=== PATIENT | male | born 1955 | race Caucasian/White ===

== ENCOUNTER 2018-04-23 21:18 | Emergency (ER) | payer BC ==
[~2018-04-23] VITALS: Ht 188 cm; Wt 86.8 kg
[~2018-04-23 21:18] MED LIST: ALBU18HF2 IH; BAC10T PO; FROV2.5T6 PO; NORCO10T PO; PROC-8 PO; ZOLP12.531 PO
[2018-04-23 21:56] LABS: BASOPHILS % (AUTO) 0.2 % (0-1); EOSINOPHILS # (AUTO) 0.1 X10'3 (0-0.9); EOSINOPHILS % (AUTO) 1.2 % (0-6); HEMATOCRIT 42.7 % (42.0-52.0); HEMOGLOBIN 14.6 g/dl (14.0-17.9); LYMPHOCYTES # (AUTO) 1.8 X10'3 (1.1-4.8); LYMPHOCYTES % (AUTO) 26.5 % (21-51); MEAN CORPUSCULAR HEMOGLOBIN 30.5 PG (27.0-31.0); MEAN CORPUSCULAR HGB CONC 34.1 % (33.0-36.5); MEAN CORPUSCULAR VOLUME 89.5 FL (78-98); MEAN PLATELET VOLUME 7.4 FL (7.4-10.4); MONOCYTES # (AUTO) 0.7 X10'3 (0-0.9); MONOCYTES % (AUTO) 9.7 % (2-12); NEUTROPHILS # (AUTO) 4.3 X10'3 (1.8-7.7); NEUTROPHILS % (AUTO) 62.4 % (42-75); PLATELET COUNT 230 X10'3 (140-440); RED BLOOD COUNT 4.77 X10'6 (4.70-6.10)
[2018-04-23 22:12] LABS: INR 1.1 INR; PARTIAL THROMBOPLASTIN TIME 27 SECONDS (22-32); PROTHROMBIN TIME 10.9 SECONDS (9.0-12.0)
[2018-04-23 22:16] LABS: ALANINE AMINOTRANSFERASE 30 U/L (12-78); ALBUMIN 3.8 G/DL (3.4-5.0); ALBUMIN/GLOBULIN RATIO 1.2 (1.1-1.5); ALKALINE PHOSPHATASE 67 IU/L (46-116); ANION GAP 8 (8-16); ASPARTATE AMINO TRANSFERASE 20 U/L (10-37); BILIRUBIN,TOTAL 1.1 MG/DL (0.1-1.0); BLOOD UREA NITROGEN 20 MG/DL (7-18); CALCIUM 9.1 MG/DL (8.5-10.1); CHLORIDE 105 MMOL/L (99-107); CREATININE 1.05 MG/DL (0.60-1.10); GLUCOSE 116 MG/DL (70-104); POTASSIUM 3.2 MMOL/L (3.5-5.1); SODIUM 140 MMOL/L (135-145); TOTAL PROTEIN 6.9 G/DL (6.4-8.2); eGFR 72 ML/MIN
[2018-04-23] MEDS ORDERED: LORazepam 1 MG tablet PO ONE (22:55)
[2018-04-23 23:55] VITALS: BP 129/59
== END 2018-04-23 23:56 | disposition home or self-care (01) ==
LOC: ER 21:19
DX: F41.9 Anxiety disorder, unspecified (principal); R07.9 Chest pain, unspecified; R42 Dizziness and giddiness; G43.909 Migraine, unspecified, not intractable, without status migrainosus; J44.9 Chronic obstructive pulmonary disease, unspecified; Z88.8 Allergy status to other drugs, medicaments and biological substances; Z79.899 Other long term (current) drug therapy
CPT/HCPCS: 36415; 71045; 80053; 84484; 85025; 85610; 85730; 93005; 99285

== ENCOUNTER 2023-05-31 04:11 | Emergency (ER) | payer MEDICARE, BC ==
[~2023-05-31] VITALS: Ht 182.9 cm; Wt 92.7 kg
[2023-05-31 04:21] VITALS: BP 147/92; PULSE 74; TEMP 98; O2SAT 96
[2023-05-31] MEDS ORDERED: ondansetron/PF 4mg/2ml inj IV ONE (04:35)
[2023-05-31] MEDS ORDERED: HYDROmorphone 1 mg/ml syringe IV ONE ×2 (04:35→05:45)
[2023-05-31 05:13] LABS: BASOPHILS % (AUTO) 0.2 % (0-1); EOSINOPHILS # (AUTO) 0.1 X10'3 (0-0.9); EOSINOPHILS % (AUTO) 1.3 % (0-6); HEMATOCRIT 41.3 % (42.0-52.0); HEMOGLOBIN 14.1 g/dl (14.0-17.9); LYMPHOCYTES # (AUTO) 1.4 X10'3 (1.1-4.8); LYMPHOCYTES % (AUTO) 16.1 % (21-51); MEAN CORPUSCULAR HEMOGLOBIN 30.4 PG (27.0-31.0); MEAN CORPUSCULAR HGB CONC 34.1 g/dL (33.0-36.5); MEAN CORPUSCULAR VOLUME 89.1 FL (78-98); MONOCYTES % (AUTO) 11.2 % (2-12); NEUTROPHILS # (AUTO) 6.4 X10'3 (1.8-7.7); NEUTROPHILS % (AUTO) 71.2 % (42-75); PLATELET COUNT 209 X10'3 (140-440); RED BLOOD COUNT 4.63 X10'6 (4.70-6.10); RED CELL DISTRIBUTION WIDTH 14.1 % (11.5-14.5)
[2023-05-31 05:19] LABS: ALANINE AMINOTRANSFERASE 16 U/L (12-78); ALBUMIN 3.6 G/DL (3.4-5.0); ALBUMIN/GLOBULIN RATIO 1.1 (1.1-1.5); ALKALINE PHOSPHATASE 81 IU/L (46-116); ANION GAP 11 (8-16); ASPARTATE AMINO TRANSFERASE 18 U/L (10-37); BILIRUBIN,TOTAL 0.6 MG/DL (0.1-1.0); BLOOD UREA NITROGEN 22 MG/DL (7-18); BUN/CREATININE RATIO 15.5 (10.0-20.0); CALCIUM 8.8 MG/DL (8.5-10.1); CHLORIDE 104 MMOL/L (99-107); CREATININE 1.42 MG/DL (0.60-1.10); GLUCOSE 119 MG/DL (70-104); SODIUM 141 MMOL/L (135-145); TOTAL CARBON DIOXIDE 26.3 MMOL/L (24-32); TOTAL PROTEIN 6.8 G/DL (6.4-8.2); eCRCL 56 ML/MIN; eGFR 50 ML/MIN
[2023-05-31] MEDS ORDERED: HYDR4TAB45 PO (05:45)
[2023-05-31] MEDS ORDERED: ONDA4TAB12 PO (05:45)
[2023-05-31] MEDS ORDERED: FLO0.4C PO (05:45)
[2023-05-31 05:59] LABS: BILIRUBIN,URINE NEGATIVE (Neg); CLARITY,URINE CLEAR (Clear); COLOR,URINE YELLOW (Yellow); GLUCOSE, URINE NEGATIVE (Neg); KETONES,URINE NEGATIVE (Neg); LEUKOCYTE ESTERASE ,URINE NEGATIVE (Neg); NITRITES, URINE NEGATIVE (Neg); OCCULT BLOOD,URINE NEGATIVE (Neg); PROTEIN,URINE NEGATIVE (Neg); UA COLLECTION TYPE VOIDED; UROBILINOGEN,URINE 0.2 E.U/dL (0.2-1.0)
[2023-05-31] MEDS ORDERED: potassium Cl 20 mEq SR tablet PO STA (06:04)
[2023-05-31 06:18] VITALS: RESP 18
== END 2023-05-31 07:16 | disposition home or self-care (01) ==
LOC: ER 04:12
DX: N23 Unspecified renal colic (principal); G43.909 Migraine, unspecified, not intractable, without status migrainosus; J44.9 Chronic obstructive pulmonary disease, unspecified; Z88.6 Allergy status to analgesic agent; Z79.899 Other long term (current) drug therapy; Z79.1 Long term (current) use of non-steroidal anti-inflammatories (NSAID)
CPT/HCPCS: 36415; 74176; 80053; 81003; 85025; 96374; 96375; 96376; 99285; J1170; J2405

== ENCOUNTER 2023-08-22 01:37 | Inpatient (IN) | payer MEDICARE, BC ==
[~2023-08-22] VITALS: Ht 188 cm; Wt 90.8 kg
[2023-08-22] VITALS (18 sets, daily range): BP systolic 113–156; BP diastolic 63–96; PULSE 54–81; RESP 13–16; TEMP 97.6–98.9; O2SAT 92–100
[~2023-08-22 01:37] MED LIST changes: +HYDR4TAB45 PO; +ONDA4TAB12 PO
[2023-08-22 02:51] LABS: BASOPHILS % (AUTO) 0.1 % (0-1); EOSINOPHILS % (AUTO) 0.3 % (0-6); HEMATOCRIT 42.9 % (42.0-52.0); HEMOGLOBIN 14.4 g/dl (14.0-17.9); LYMPHOCYTES # (AUTO) 1.5 X10'3 (1.1-4.8); LYMPHOCYTES % (AUTO) 10.9 % (21-51); MEAN CORPUSCULAR HEMOGLOBIN 30.3 PG (27.0-31.0); MEAN CORPUSCULAR HGB CONC 33.6 g/dL (33.0-36.5); MEAN PLATELET VOLUME 7.8 FL (7.4-10.4); MONOCYTES # (AUTO) 1.8 X10'3 (0-0.9); MONOCYTES % (AUTO) 13.2 % (2-12); NEUTROPHILS # (AUTO) 10.5 X10'3 (1.8-7.7); NEUTROPHILS % (AUTO) 75.5 % (42-75); PLATELET COUNT 211 X10'3 (140-440); RED BLOOD COUNT 4.76 X10'6 (4.70-6.10); RED CELL DISTRIBUTION WIDTH 13.8 % (11.5-14.5); WHITE BLOOD COUNT 13.9 X10'3 (4.5-11.0)
[2023-08-22 02:59] LABS: ALANINE AMINOTRANSFERASE 18 U/L (12-78); ALBUMIN 3.8 G/DL (3.4-5.0); ALBUMIN/GLOBULIN RATIO 1.2 (1.1-1.5); ALKALINE PHOSPHATASE 81 IU/L (46-116); ANION GAP 9 (8-16); ASPARTATE AMINO TRANSFERASE 18 U/L (10-37); BILIRUBIN,TOTAL 1.5 MG/DL (0.1-1.0); BLOOD UREA NITROGEN 17 MG/DL (7-18); BUN/CREATININE RATIO 9.6 (10.0-20.0); CALCIUM 8.9 MG/DL (8.5-10.1); CHLORIDE 99 MMOL/L (99-107); CREATININE 1.78 MG/DL (0.60-1.10); GLUCOSE 148 MG/DL (70-104); POTASSIUM 3.1 MMOL/L (3.5-5.1); SODIUM 136 MMOL/L (135-145); TOTAL CARBON DIOXIDE 28.2 MMOL/L (24-32); TOTAL PROTEIN 7.1 G/DL (6.4-8.2); eCRCL 47 ML/MIN; eGFR 38 ML/MIN
[2023-08-22 03:40] LABS: BILIRUBIN,URINE NEGATIVE (Neg); CLARITY,URINE CLEAR (Clear); COLOR,URINE YELLOW (Yellow); GLUCOSE, URINE 100 mg/dl (Neg); KETONES,URINE 15 mg/dl (Neg); LEUKOCYTE ESTERASE ,URINE NEGATIVE (Neg); NITRITES, URINE NEGATIVE (Neg); OCCULT BLOOD,URINE SMALL (Neg); PH,URINE 6.5 (4.8-8.0); PROTEIN,URINE 30 mg/dl (Neg); UROBILINOGEN,URINE 0.2 E.U/dL (0.2-1.0)
[2023-08-22 03:44] LABS: UA COLLECTION TYPE VOIDED
[2023-08-22 03:45] LABS: MUCUS STRANDS FEW /LPF (Neg); SQUAMOUS EPITHELIAL CELL,UR NONE SEEN /LPF (FEW)
[2023-08-22 03:51] LABS: BACTERIA,URINE FEW /HPF (Neg); RBC,URINE 0-2 /HPF (0-2); WBC,URINE NONE SEEN /HPF (0-4)
[2023-08-22 04:05] LABS: ACETAMINOPHEN < 2.0 UG/ML (10-30)
--- NOTE | 2023-08-22 04:42 | NUR ---
asking for pain medication for patient, patient states he is having pain and would like something to help. Spoke with MD, order received.
[2023-08-22] MEDS ORDERED: HYDROmorphone inj. 0.5 MG/0.5 ML DISP.SYRIN IV ONE (04:45)
--- NOTE | 2023-08-22 07:30 | NUR ---
at bedside and is very attentive to patient's care. Educated and patient about plan of care today.
[2023-08-22] MEDS ORDERED: normal saline 1000ml 1,000 ML IV ONE (07:35)
[2023-08-22] MEDS ORDERED: CefTRIAXone 2gm/D5W 50ml BAG 50 ML IV ONE (07:35)
[2023-08-22] MEDS ORDERED: magnesium 4gm in 100ml NS 100 ML IV PRN (07:40)
[2023-08-22] MEDS ORDERED: potassium Cl 40MEQ/1/2NS 520ml 520 ML IV PRN (07:40)
[2023-08-22] MEDS ORDERED: mag hydrox/Alum hydrox/simeth 30ml oral suspension PO PRN (07:40)
[2023-08-22] MEDS ORDERED: magnesium hydroxide 30ml (MOM) UD suspension PO PRN (07:40)
[2023-08-22] MEDS ORDERED: ondansetron/PF 4mg/2ml inj IV PRN ×2 (07:40→08:40)
[2023-08-22] MEDS ORDERED: acetaminophen 325mg tablet PO PRN (07:40)
[2023-08-22] MEDS ORDERED: potassium Cl 20 mEq SR tablet PO PRN (07:40)
[2023-08-22] MEDS ORDERED: magnesium Cl slow-release 64mg tablet PO PRN (07:40)
[2023-08-22] MEDS: enoxaparin 40mg/0.4ml syringe SUBCUT SCH (08:15)
--- NOTE | 2023-08-22 08:21 | NUR ---
Pt resting quietly with eyes opened. Pt states he feels like he needs to constantly pee. Bladder scan performed 250mL found. notified.
[2023-08-22] MEDS ORDERED: labetalol 20mg/4ml (5mg/ml) syringe IV PRN (08:40)
[2023-08-22] MEDS ORDERED: morphine 2 MG/ML inj. syringe IV PRN (08:40)
[2023-08-22] MEDS ORDERED: hydrALAZINE 20mg/ml inj. IV PRN (08:40)
[2023-08-22] MEDS ORDERED: morphine 4 MG/ML inj SYRINge IV PRN (08:40)
[2023-08-22] MEDS ORDERED: ringers solution, lacted 1,000 ML IV SCH (08:40)
[2023-08-22] MEDS ORDERED: HYDROmorphone/PF 0.2 MG/ML SYRINGE IV PRN ×2 (08:40)
--- NOTE | 2023-08-22 08:42 | NUR ---
PT TO BE PICKED UP IN 10 MIN.
[2023-08-22] MEDS ORDERED: iohexol 300 MG/1 ML 50ml polymer ONE (09:07)
--- NOTE | 2023-08-22 10:01 | NUR ---
Spoke with on the phone. requesting information on her . Transferred call to [place] in [place].
[2023-08-22] MEDS ORDERED: propofol inj 20 ML IV ONE (10:32)
[2023-08-22] MEDS ORDERED: ondansetron/PF 4mg/2ml inj ONE (10:32)
[2023-08-22] MEDS ORDERED: LIDOcaine 2% (20mg/ml) 5ml vial ONE (10:32)
[2023-08-22] MEDS ORDERED: desflurane 240ml liquid inh. IH ONE (10:35)
[2023-08-22] MEDS ORDERED: dexamethasone sod phosphate 4mg/ml inj. ONE (10:45)
[2023-08-22] MEDS ORDERED: fentaNYL/PF 50MCG/1 ML 2ML syringe ONE (10:47)
--- NOTE | 2023-08-22 11:10 | NUR ---
Received from OR via BED, accompanied by Anesthesiologist and report given by Anesthesiologist. PATIENT WAKING UP, NO S/S OF PAIN, V/S WNL, SCD ON, 20G TO BALTAZAR, Addendum: 08/22/23 at 1115 by Donis Mg RN Amended: Links added.
--- NOTE | 2023-08-22 12:00 | NUR ---
PATIENT A&OX4, DENIES PAIN, V/S WNL, SCD ON, 20G TO RUE, NO DRAINAGE TO SURGICAL SIGHT OBSERVED, PATIENT TAKEN TO 4021A WITH ALL BELONGINGS AND ESCORTED TO BATHROOM TO SIT AND VOID. REPORT GIVEN TO RN WHO HAS TAKEN OVER PATIENT CARE AND IS IN ROOM NOW WITH PATIENT IN BATHROOM VOIDING.
[2023-08-22] MEDS: normal saline 1000ml 1,000 ML IV SCH ×3 (13:15→21:08)
[2023-08-22] MEDS: potassium Cl 20 mEq SR tablet PO PRN ×2 (14:30→18:46)
[2023-08-22] MEDS ORDERED: tamsulosin 0.4mg capsule PO SCH (21:00)
[2023-08-22] MEDS: HYDROcodone/acetaminophen 10/325mg tab PO PRN (21:23)
[2023-08-23] MEDS: potassium Cl 20 mEq SR tablet PO PRN (00:04)
--- NOTE | 2023-08-23 04:54 | NUR ---
Reviewed Liam PICKETT charting and agree with it except where I documented my findings.
[2023-08-23 04:55] LABS: BASOPHILS % (AUTO) 0.1 % (0-1); EOSINOPHILS % (AUTO) 0 % (0-6); HEMATOCRIT 38.1 % (42.0-52.0); LYMPHOCYTES # (AUTO) 1.1 X10'3 (1.1-4.8); LYMPHOCYTES % (AUTO) 12.2 % (21-51); MEAN CORPUSCULAR HEMOGLOBIN 30.8 PG (27.0-31.0); MEAN CORPUSCULAR HGB CONC 34.2 g/dL (33.0-36.5); MEAN CORPUSCULAR VOLUME 90.1 FL (78-98); MEAN PLATELET VOLUME 7.8 FL (7.4-10.4); MONOCYTES # (AUTO) 0.7 X10'3 (0-0.9); MONOCYTES % (AUTO) 8.4 % (2-12); NEUTROPHILS # (AUTO) 6.9 X10'3 (1.8-7.7); NEUTROPHILS % (AUTO) 79.3 % (42-75); PLATELET COUNT 209 X10'3 (140-440); RED BLOOD COUNT 4.23 X10'6 (4.70-6.10); RED CELL DISTRIBUTION WIDTH 13.5 % (11.5-14.5); WHITE BLOOD COUNT 8.7 X10'3 (4.5-11.0)
[2023-08-23 05:12] LABS: ALANINE AMINOTRANSFERASE 16 U/L (12-78); ALBUMIN 2.8 G/DL (3.4-5.0); ALBUMIN/GLOBULIN RATIO 0.7 (1.1-1.5); ALKALINE PHOSPHATASE 62 IU/L (46-116); ANION GAP 5 (8-16); ASPARTATE AMINO TRANSFERASE 15 U/L (10-37); BILIRUBIN,TOTAL 0.6 MG/DL (0.1-1.0); BLOOD UREA NITROGEN 21 MG/DL (7-18); BUN/CREATININE RATIO 19.3 (10.0-20.0); CALCIUM 8.7 MG/DL (8.5-10.1); CHLORIDE 106 MMOL/L (99-107); CREATININE 1.09 MG/DL (0.60-1.10); GLUCOSE 119 MG/DL (70-104); MAGNESIUM 1.8 MG/DL (1.5-2.4); PHOSPHORUS 2.5 MG/DL (2.3-4.5); POTASSIUM 3.7 MMOL/L (3.5-5.1); SODIUM 139 MMOL/L (135-145); TOTAL CARBON DIOXIDE 27.6 MMOL/L (24-32); TOTAL PROTEIN 6.8 G/DL (6.4-8.2); eCRCL 78 ML/MIN; eGFR 68 ML/MIN
[2023-08-23] MEDS: HYDROcodone/acetaminophen 10/325mg tab PO PRN ×2 (05:38→12:46)
[2023-08-23 06:00] VITALS: BP 140/80; PULSE 71; RESP 20; TEMP 97.5; O2SAT 90
--- NOTE | 2023-08-23 06:31 | NUR ---
Problems reprioritized. Patient report given, questions answered & plan of care reviewed with Nelia Helm .
--- NOTE | 2023-08-23 06:49 | NUR ---
Patient in room [facility] 4021. I have received report from PIYUSH Wheeler and had the opportunity to ask questions. Following patient with CiaraHUNTER espinosa.
[2023-08-23 08:00] VITALS: RESP 16; O2SAT 92
[2023-08-23] MEDS ORDERED: CefTRIAXone/D5W-Rocephin 1gm 50 ML IV SCH (08:00)
[2023-08-23] MEDS: enoxaparin 40mg/0.4ml syringe SUBCUT SCH (09:41)
[2023-08-23 10:45] VITALS: BP 125/75; PULSE 65; RESP 16; TEMP 98.4; O2SAT 95
--- NOTE | 2023-08-23 13:00 | NUR ---
Orientee documentation:Ciara Shultz RN I have reviewed and agree with all interventions, assessments performed and documented by Ciara Shultz RN.
[2023-08-23 14:00] VITALS: RESP 16
--- NOTE | 2023-08-23 14:00 | NUR ---
Discharge instructions given to pt and -both verbalize understanding, Saline lock discontinued with tip intact, pt discharged home via wc with and all belongings. Ciara HARRISON
== END 2023-08-23 14:40 | disposition home or self-care (01) | DRG 907 ==
LOC: ER 01:38 → ED HOLD 08:03 → ORTHO 4S 11:58
PROVIDERS: ADMIT Family Medicine; ATTEND Family Medicine
PROC: BT1D1ZZ Fluoroscopy of Right Kidney, Ureter and Bladder using Low Osmolar Contrast (ICD-10-PCS; 2023-08-22)
PROC: 0T768DZ Dilation of Right Ureter with Intraluminal Device, Via Natural or Artificial Opening Endoscopic (ICD-10-PCS; principal; 2023-08-22 10:35)
DX: T39.1X1A Poisoning by 4-Aminophenol derivatives, accidental (unintentional), initial encounter (principal); G92.8 Other toxic encephalopathy; N17.0 Acute kidney failure with tubular necrosis; N13.6 Pyonephrosis; J44.9 Chronic obstructive pulmonary disease, unspecified; R44.1 Visual hallucinations; G43.909 Migraine, unspecified, not intractable, without status migrainosus; G89.29 Other chronic pain; Z87.442 Personal history of urinary calculi; Z88.6 Allergy status to analgesic agent; Z80.0 Family history of malignant neoplasm of digestive organs; Y92.89 Other specified places as the place of occurrence of the external cause
CPT/HCPCS: 36415; 70450; 74176; 76000; 80053; 80329; 81001; 83735; 84100; 84145; 85025; 87081; 96374; 99285; A4615; A4618; C2617; G0378; J0696; J1100; J1170; J1650; J2405; J2704; J3010; J3490; J7030; J7120; Q9967